=== PATIENT | female | born 1990 | race Caucasian/White ===

== ENCOUNTER 2016-10-09 12:35 | Emergency (ER) | payer SELFPAY ==
[2016-10-09 13:54] VITALS: BP 125/85
== END 2016-10-09 14:05 | disposition left against medical advice (07) ==
LOC: ED 12:35
DX: R11.10 Vomiting, unspecified (principal); R42 Dizziness and giddiness; R25.9 Unspecified abnormal involuntary movements
CPT/HCPCS: 99281

== ENCOUNTER 2017-04-16 11:47 | Emergency (ER) | payer SELFPAY ==
--- NOTE | 2017-04-16 14:32 | ED ---
Skin Complaint - HPI Summary HPI Summary: 26 female presents to ED with complaints of rash that has been ongoing since . Patient states she woke up with a red rash that was tender and associated with swelling of hands/forearms and foot. Admits to itching. Patient was seen by PCP on Monday and placed on claritin and aspirin. Did try benadryl prior to visit with PCP. Denies any new soaps, lotion, detergent, foods and medications. Works at a [employer] office however her daily practices have not changed, not using any new equipement, etc. Patient states the worst of her symptoms was yesterday when there were very red swollen areas that were tender. Rash has since improved and is only on right anterior forearm at this time. Admits to it being warm. Denies joint pain and aches. Denies know bug or tick bites. No fever/chills. No other complaints at this time. No PMHx. No other medications. Rash also noticed yesterday under chin, however has since resolved. No current numbness/tingling or drainage. No difficulty breathing or throat swelling. No trauma or swelling. Does take OCP. Rash is very random and bilateral, coming and going. Denies weakness. - History of Current Complaint Chief Complaint: EDRashSkinAbscess Time Seen by Provider: 04/16/17 12:16 Stated Complaint: SWELLING PAIN IN HANDS Hx Obtained From: Patient Onset/Duration: Started Days Ago, Still Present, Resolved - some Timing: Constant Onset Severity: Severe Current Severity: Moderate Pain Intensity: 7 Pain Scale Used: 0-10 Numeric Skin Location: Arm, Hand, Foot Character: Swelling, Pruritus, Redness, Raised, Painful Aggravating Symptom(s): Touch Alleviating Symptom(s): Nothing, Antihistamines Associated Signs & Symptoms: Rash, Joint Swelling - hands Related History: Other: - unknown - Allergy/Home Medications Allergies/Adverse Reactions: Allergies Allergy/AdvReac Type Severity Reaction Status Date / Time No Known Allergies Allergy Verified 04/16/17 12:02 PMH/Surg Hx/FS Hx/Imm Hx Endocrine/Hematology History: Denies: Hx Diabetes Cardiovascular History: Denies: Hx Hypertension Respiratory History: Denies: Hx Asthma - Surgical History Surgery Procedure, Year, and Place: n/a - Immunization History Date of Tetanus Vaccine: UTD Date of Influenza Vaccine: NO Immunizations Up to Date: Yes Infectious Disease History: No Infectious Disease History: Denies: Traveled Outside the [place] in Last 30 Days - Family History Known Family History: Positive: None - Social History Alcohol Use: Occasionally Substance Use Type: Reports: None Smoking Status (MU): Never Smoked Tobacco Review of Systems Constitutional: Negative Cardiovascular: Negative Respiratory: Negative Positive: Arthralgia, Myalgia Positive: Rash All Other Systems Reviewed And Are Negative: Yes Physical Exam Triage Information Reviewed: Yes Vital Signs On Initial Exam: Initial Vitals Temp Pulse Resp BP Pulse Ox 97.8 F 91 16 122/72 98 04/16/17 11:57 04/16/17 11:57 04/16/17 11:57 04/16/17 11:57 04/16/17 11:57 Vital Signs Reviewed: Yes Appearance: Positive: Well-Appearing, No Pain Distress, Well-Nourished Skin: Positive: Warm, Skin Color Reflects Adequate Perfusion, Dry, Erythema @ - noted to right anterior forearm diffuse, warm, mildy tender to touch, blanchable , no fluid or sign of bite/open wound. sensation intact. mild edema associated. old pictures of other locations with rash viewed and appeared similar. mild erythema noted blancable on bottom of right foot and palm of left hand. pruritic. similar to urticaria, bilateral without assosciated weakness.. Negative: Cold, Numb, Cyanosis @ Head/Face: Positive: Normal Head/Face Inspection Eyes: Positive: Conjunctiva Clear ENT: Positive: Hearing grossly normal Neck: Positive: Supple, Nontender, No Lymphadenopathy Respiratory/Lung Sounds: Positive: Clear to Auscultation, Breath Sounds Present. Negative: Decreased Breath Sounds, Rales, Rhonchi, Wheezes Cardiovascular: Positive: Normal, RRR, Pulses are Symmetrical in both Upper and Lower Extremities. Negative: Murmur, Rub Musculoskeletal: Positive: Normal, Strength/ROM Intact, Pain @ - with movement and tough of right hand/forearm but able and FROM, Edema Left, Edema Right - hands/forearm, described above. Negative: Limited @, Interruption @, Abnormal @ Neurological: Positive: Normal, Sensory/Motor Intact - sensation intact, Alert, Oriented to Person Place, Time, CN Intact II-III, Reflexes Intact, NV Bundle Intact Distally, Normal Gait - [place] Coma Scale Coma Scale Total: 15 Diagnostics - Vital Signs Vital Signs Temp Pulse Resp BP Pulse Ox 04/16/17 11:57 97.8 F 91 16 122/72 98 - Laboratory Result Diagrams: 04/16/17 14:51 04/16/17 14:51 Lab Statement: Any lab studies that have been ordered have been reviewed, and results considered in the medical decision making process. Course/Dx - Course Course Of Treatment: Dr Jaramillo also evaluated patient who agrees that this appears to be an allergic reaction/urticaric like rash. Basic labs obtained and unremarkable. Will give vistiril and medrol pack. Given dexamethasone and vistirl while in ED. Continue at home, starting tomorrow. No concern for other etiology at this time due to presentation and symptoms/complaints. Has improved since began. Presenting like urticaria. Follow up with PCP. Aware of worsening signs and symptoms to watch out for. Normal vitals and afebrile. Ibuprofen for pain/swelling. discontinue aspirin and claritin. benadryl at bedtime and topical creams suggested for itching if desired. - Differential Diagnoses - Skin Complaint Differential Diagnoses: MRSA, Urticaria, Viral Exanthem, Other - rash, erythema migrans - Diagnoses Provider Diagnoses: Urticaria, Rash - Physician Notifications Discussed Care Of Patient With: Dr Jaramillo also evaluated patient and agrees Discharge - Discharge Plan Condition: Stable Disposition: HOME Prescriptions: hydrOXYzine HCL TAB* [Atarax 25 MG TAB*] 25 mg PO TID #21 tab Methylprednisolone [Medrol Dosepak 4 MG*] 4 mg PO .SEE JESSENIA INSTRUCTION #21 tab Patient Education Materials: Urticaria (ED), Acute Rash (ED) Referrals: [facility] [Outside] Additional Instructions: Take prescribed medication starting tomorrow. Discontinue aspirin and claritin. Take benadryl at bedtime. Ibuprofen as needed for discomfort and inflammation. You may try hydrocortisone or benadryl cream to help with itching topically, sold OTC. Keep clean and dry. Follow up with PCP for recheck as already scheduled. Any new or worsening symptoms please seek medical attention promptly, as discussed.
[2017-04-16 15:02] LABS: Hematocrit 40 % (35-47); Hemoglobin 14.1 g/dl (12.0-16.0); Mean Corpuscular HGB Conc 35 g/dl (31-36); Mean Corpuscular Hemoglobin 32 pg (27-31); Mean Corpuscular Volume 90 fL (80-97); Mean Platelet Volume 8 um3 (7.4-10.4); Platelet Count 227 10^3/ul (150-450); Red Blood Count 4.47 10^6/ul (4.0-5.4); Red Cell Distribution Width 13 % (10.5-15); White Blood Count 9.7 10^3/ul (3.5-10.8)
[2017-04-16 15:17] LABS: EGFR Non-African American 105.4 (>60)
[2017-04-16] MEDS ORDERED: Dexamethasone IV* 4 MG/ML 1 ML (4 MG) IM ONE (15:18)
[2017-04-16] MEDS ORDERED: hydrOXYzine HCL TAB* 25 MG PO ONE (15:18)
[2017-04-16 15:58] VITALS: BP 121/74
== END 2017-04-16 15:57 | disposition home or self-care (01) ==
LOC: ED 11:47
DX: R21 Rash and other nonspecific skin eruption (principal); L50.9 Urticaria, unspecified
CPT/HCPCS: 36415; 80053; 85027; 85652; 86140; 86618; 96372; 99282; A9270-GY; J1100

== ENCOUNTER 2017-04-22 09:41 | Emergency (ER) | payer SELFPAY ==
[2017-04-22 09:51] VITALS: BP 147/74
--- NOTE | 2017-04-22 09:59 | UC ---
Skin Complaint HPI - HPI Summary HPI Summary: 26 year old female with upper lip swelling. She went to the ED last week and given medrol and atarax. Her symptoms had improved but now returned. She finished the meds recently. No SOB. No AVILA. No difficulty breathing or swallowing. She went to her PCP as well for this when it was her hands that were swollen and both times at the ED and the PCP the labs were normal she believes. She did recently increase her celexa from 10 mg to 20 mg . - History of Current Complaint Chief Complaint: UCAllergicReaction Time Seen by Provider: 04/22/17 09:53 Stated Complaint: SWOLLEN LIPS Hx Obtained From: Patient Hx Last Menstrual Period: 03/24 Onset/Duration: Gradual Onset Timing: Constant Onset Severity: Mild Current Severity: Moderate Aggravating Factor(s): Nothing - Allergy/Home Medications Allergies/Adverse Reactions: Allergies Allergy/AdvReac Type Severity Reaction Status Date / Time No Known Allergies Allergy Verified 04/22/17 09:43 Review of Systems ENT: Other - lip swelling upper lip Psychological: Anxious, Depressed All Other Systems Reviewed And Are Negative: Yes PMH/Surg Hx/FS Hx/Imm Hx Previously Healthy: Yes Psychological History: Anxiety, Depression - Surgical History Surgical History: None Surgery Procedure, Year, and Place: n/a - Family History Known Family History: Positive: None - Social History Occupation: Employed Full-time - MA at [employer] Alcohol Use: Occasionally Substance Use Type: None Smoking Status (MU): Never Smoked Tobacco Physical Exam Triage Information Reviewed: Yes Appearance: Well-Appearing, No Pain Distress, Well-Nourished Vital Signs: Initial Vital Signs Temp 97.9 F 04/22/17 09:49 Pulse 106 04/22/17 09:49 Resp 16 04/22/17 09:49 BP 147/74 04/22/17 09:49 Pulse Ox 100 04/22/17 09:49 Vital Signs Reviewed: Yes Eye Exam: Normal ENT Exam: Normal Dental Exam: Normal Neck exam: Normal Neck: Positive: 1 Respiratory Exam: Normal Cardiovascular Exam: Normal Musculoskeletal Exam: Normal Neurological Exam: Normal Psychological Exam: Normal Skin Exam: Normal Skin: Positive: Other - upper lip mild angioedema / swelling. lower lip not involved. airway open . no enlarged tonsils. breathing and talking comfortably Course/Dx - Course Course Of Treatment: Could be her SSRi as it was incresed recently and no other new meds. Could be food allergy as well. She will decresae SSRI to 10 mg at this time and f/u with PCP in 2-3 days to discuss further management. also to keep journal at home for food allergy . if sx worsen she is well aware to go to ED. If worsened swelling, any throat closing or difficulty swalloing or breathing then go to ED. She received depo in ED and thinks it helped and will get at this time as well . restart medrol at this time and refill atarax . - Diagnoses Provider Diagnoses: Angioedema upper lip Discharge - Discharge Plan Condition: Good Disposition: HOME Prescriptions: hydrOXYzine HCL TAB* [Atarax 25 MG TAB*] 25 mg PO TID #30 tab Methylprednisolone [Medrol Dosepak 4 MG*] 0 mg PO .SEE JESSENIA INSTRUCTION #1 tab Patient Education Materials: Angioedema (ED) Referrals: No Primary Care Phys,NOPCP [Primary Care Provider] - 2 Days Additional Instructions: WE DISCUSSED YOUR SYMPTOMS MAY BE FROM YOUR CELEXA. PLEASE CUT YOUR DOSE DOWN TO 10 MG DAILY AND FOLLOW UP WITH YOUR PRIMARY CARE PHYSICIAN IN 2-3 DAYS TO DISCUSS THE NEXT STEP . IF YOUR SYMPTOMS ARE WORSENING THEN GO TO THE EMERGENCY ROOM.
[2017-04-22] MEDS ORDERED: methylPREDNISolone 125 MG* 2 ML VIAL IM ONE (10:08)
== END 2017-04-22 10:30 | disposition home or self-care (01) ==
LOC: UCEAST 09:41
DX: T78.3XXA Angioneurotic edema, initial encounter (principal); X58.XXXA Exposure to other specified factors, initial encounter; Y92.9 Unspecified place or not applicable
CPT/HCPCS: 99211; G0463; J2930

== ENCOUNTER 2018-03-24 08:01 | Emergency (ER) | payer BC ==
[2018-03-24 08:13] VITALS: BP 117/85
--- NOTE | 2018-03-24 08:32 | UC ---
Eye Complaint HPI - HPI Summary HPI Summary: 27-year-old female presents with onset of right eye redness, itchiness, and drainage this morning. Associated with to 3 day history of some upper respiratory symptoms including nasal congestion, clear nasal drainage, right ear fullness, and occasional productive cough. She does state that she has had some occasional nausea for the last several days. She did miss her last period however was seen by her SPORT PSYCHOLOGIST yesterday had a negative test and ultrasound. She also states that she has had multiple weeks of intermittent watery diarrhea which she has been following with her primary care provider. Denies fever, chills, eye injury, FB sensation, photophobia, vision changes, headache, sinus pressure, sore throat, chest pain, shortness of breath, abdominal pain, or vomiting. - History of Current Complaint Chief Complaint: UCEye Stated Complaint: EYE COMPLAINT Time Seen by Provider: 03/24/18 08:03 Hx Obtained From: Patient Hx Last Menstrual Period: 02/16/18 Onset/Duration: Sudden Onset Pain Intensity: 0 Location of Injury: Conjunctiva Aggravating Factor(s): Nothing Alleviating Factor(s): Nothing Associated Signs And Symptoms: Positive: Drainage (Purulent). Negative: Photophobia, Vision Impairment Bilateral, Fever - Allergies/Home Medications Allergies/Adverse Reactions: Allergies Allergy/AdvReac Type Severity Reaction Status Date / Time ibuprofen Allergy Swelling Verified 03/24/18 08:09 Of Face,Lips,& Throat Home Medications: Home Medications Cetirizine* [ZyrTEC 10 MG TAB*] 10 mg PO DAILY 03/24/18 [History Confirmed 03/24] Ethinyl Estradiol/Drospirenone [Loryna] 1 tab PO DAILY 03/24/18 [History Confirmed 03/24/18] Venlafaxine EXT RELEASE CAP* [Effexor Xr CAP*] 75 mg PO DAILY 03/24/18 [History Confirmed 03/24/18] PMH/Surg Hx/FS Hx/Imm Hx Previously Healthy: Yes Psychological History: Anxiety, Depression - Surgical History Surgical History: Yes - Cholecystectomy Surgery Procedure, Year, and Place: n/a - Family History Known Family History: Positive: Non-Contributory - Social History Occupation: Employed Full-time Lives: Alone Alcohol Use: Occasionally Substance Use Type: None Smoking Status (MU): Never Smoked Tobacco Review of Systems All Other Systems Reviewed And Are Negative: Yes Constitutional: Negative: Fever, Chills Skin: Negative: Rash Eyes: Positive: Drainage, Eye Redness. Negative: Blurred Vision, Diplopia, Photophobia ENT: Positive: Nasal Discharge. Negative: Sore Throat, Sinus Congestion, Sinus Pain/Tenderness Respiratory: Positive: Cough. Negative: Shortness Of Breath Cardiovascular: Negative: Palpitations, Chest Pain Gastrointestinal: Positive: Diarrhea, Nausea. Negative: Abdominal Pain, Vomiting Genitourinary: Negative: Dysuria, Frequency, Urgency Is Patient Immunocompromised?: No Physical Exam - Summary Physical Exam Summary: GENERAL APPEARANCE: Well developed, well nourished, alert and cooperative, and appears to be in no acute distress. EYES: PERRL, EOM intact. Vision is grossly intact. Right eye with conjunctival erythema and purulent drainage. EARS: External auditory canals and tympanic membranes clear, hearing grossly intact. NOSE: Nasal discharge with clear nasal drainage. THROAT: Oral cavity and pharynx normal. No tonsilar inflammation, swelling, or exudate. Teeth and gingiva in good general condition. NECK: Neck supple, non-tender without lymphadenopathy. CARDIAC: Normal S1 and S2. No S3, S4 or murmurs. Rhythm is regular. There is no peripheral edema, cyanosis or pallor. Extremities are warm and well perfused. Capillary refill is less than 2 seconds. LUNGS: Clear to auscultation and percussion without rales, rhonchi, wheezing or diminished breath sounds. ABDOMEN: Positive bowel sounds. Soft, nondistended, nontender. No guarding or rebound. No masses or hepatosplenomegally. MUSKULOSKELETAL: ROM intact to all extremities. No joint erythema or tenderness. Normal muscular development. Normal gait. EXTREMITIES: No edema. Peripheral pulses intact. SKIN: Skin normal color, texture and turgor with no lesions or eruptions. Triage Information Reviewed: Yes Vital Signs: Initial Vital Signs Temp 98.6 F 03/24/18 08:11 Pulse 89 03/24/18 08:11 Resp 16 03/24/18 08:11 BP 117/85 03/24/18 08:11 Pulse Ox 99 03/24/18 08:11 Vital Signs Reviewed: Yes Eye Complaint Course/Dx - Course Course Of Treatment: 27-year-old female presents with onset of right eye redness , itchiness, and drainage this morning. Associated with to 3 day history of some upper respiratory symptoms including nasal congestion, clear nasal drainage , right ear fullness, and occasional productive cough. She does state that she has had some occasional nausea for the last several days. She did miss her last period however was seen by her SPORT PSYCHOLOGIST yesterday had a negative test and ultrasound. She also states that she has had multiple weeks of intermittent watery diarrhea which she has been following with her primary care provider. Denies fever, chills, eye injury, FB sensation, photophobia, vision changes, headache, sinus pressure, sore throat, chest pain, shortness of breath , abdominal pain, or vomiting. Afebrile. VSS. Exam revealed some right eye erythema with discharge as well as mild nasal congestion and clear drainage. Suspect that symptoms may be viral however with the purulent eye discharge will treat with course of Polytrim ophthalmic as well as symptomatic treatment of URI symptoms. She has follow up scheduled with her PCP in 1 week already scheduled to follow up on her intermittent diarrhea and will address this with them at that time. Warning symptoms were reviewed with patient. Verbalizes understanding and agrees with POC. - Differential Dx/Diagnosis Differential Diagnosis/HQI/PQRI: Conjunctivitis, Corneal Abrasion, Foreign Body , Periorbital Cellulitis Provider Diagnosis: Conjunctivitis, Upper respiratory infection with cough and congestion Discharge - Sign-Out/Discharge Documenting (check all that apply): Patient Departure All imaging exams completed and their final reports reviewed: No Studies - Discharge Plan Condition: Stable Disposition: HOME Prescriptions: Fluticasone NASAL SPRAY 50MCG* [Flonase NASAL SPRAY 50MCG*] 2 spray BOTH NARES DAILY #1 btl Polymyx/Trimethoprim OPTH* [Polytrim OPHTH*] 1 drop RIGHT EYE Q3H #1 btl MDD 6 doses Patient Education Materials: Upper Respiratory Infection (ED), Conjunctivitis ( ED) Forms: *Work Release Referrals: Demario Walden DO [Primary Care Provider] - (Keep your appointment next week as scheduled) Additional Instructions: Your history and exam are consistent with an upper respiratory infection. Upper respiratory infections tend to be from a virus which do not respond to antibiotics and are limited to the treatment of symptoms. Viral infections typically run their course in 7-10 days. Because of the drainage you are having from the eye, we will treat for a possible bacterial conjunctivitis with an antibiotic eye drop. Start Polytrim opthalmic 1 drop in the affected eye every 3 hours while awake for 7 days. Be sure to complete the full 7 days even if feeling better. To prevent transmitting the infection, try not to rub your eye, do not share washcloths or towels with others, only use a wash cloth or towel once and launder, wash your hands frequently. For the upper respiratory infection" Drink plenty of fluids to avoid dehydration especially if you are running any fever. Use a saline rinse kit such as Neti Pot or NeilMed at least twice a day to help thin secretions and promote drainage of the sinuses. Use fluticasone (Flonase) nasal spray 2 sprays each nostril once daily. Take over the counter acetaminophen (Tylenol) according to directions as needed for pain or fever. Follow up with your primary care provider as scheduled next week to follow up your symptoms and to reassess the nausea and diarrhea. Seek immediate medical attention in the emergency room if you have fever greater than 100.5 F despite taking acetaminophen, have chest pain, difficulty breathing, have vision changes or loss, or have any worsening of symptoms. - Billing Disposition and Condition Condition: STABLE Disposition: Home
== END 2018-03-24 08:39 | disposition home or self-care (01) ==
LOC: UCCORT 08:01
DX: H10.9 Unspecified conjunctivitis (principal); J06.9 Acute upper respiratory infection, unspecified; R05 Cough; R09.81 Nasal congestion; Z88.3 Allergy status to other anti-infective agents
CPT/HCPCS: 99212; G0463

== ENCOUNTER 2018-05-30 10:26 | Emergency (ER) | payer SELFPAY ==
--- NOTE | 2018-05-30 11:24 | UC ---
Throat Pain/Nasal Jhon HPI - HPI Summary HPI Summary: 27-year-old female comes in with 3 days complaint of upper respiratory tract infection symptoms. Set of runny nose mild sore throat and chills. Symptoms started getting worse in the last 24 hours with a lot of upper body aches. She is concerned if she might have the flu. [id number] medications to help with symptoms. - History of Current Complaint Stated Complaint: COUGH, CONGESTION, HEADACHE, SORE THROAT Time Seen by Provider: 05/30/18 11:03 Hx Last Menstrual Period: 02/16/18 - Allergies/Home Medications Allergies/Adverse Reactions: Allergies Allergy/AdvReac Type Severity Reaction Status Date / Time ibuprofen Allergy Swelling Verified 05/30/18 11:44 Of Face,Lips,& Throat PMH/Surg Hx/FS Hx/Imm Hx Previously Healthy: Yes - Surgical History Surgical History: Yes - Cholecystectomy Surgery Procedure, Year, and Place: n/a - Family History Known Family History: Positive: None, Non-Contributory - Social History Alcohol Use: Occasionally Substance Use Type: None Smoking Status (MU): Never Smoked Tobacco Review of Systems All Other Systems Reviewed And Are Negative: Yes Constitutional: Positive: Chills Skin: Positive: Negative Eyes: Positive: Negative ENT: Positive: Sore Throat, Nasal Discharge, Sinus Congestion Respiratory: Positive: Negative Cardiovascular: Positive: Negative Gastrointestinal: Positive: Negative Motor: Positive: Negative Neurovascular: Positive: Negative Musculoskeletal: Positive: Myalgia Neurological: Positive: Negative Psychological: Positive: Negative Is Patient Immunocompromised?: No Physical Exam Triage Information Reviewed: Yes Appearance: No Pain Distress, Well-Nourished, Ill-Appearing - mild Vital Signs Reviewed: Yes Eye Exam: Normal Eyes: Positive: Conjunctiva Clear ENT: Positive: Pharyngeal erythema, Nasal congestion, Nasal drainage, TMs normal Neck exam: Normal Neck: Positive: Supple Respiratory: Positive: Lungs clear, Normal breath sounds, No respiratory distress Cardiovascular: Positive: RRR Musculoskeletal Exam: Normal Musculoskeletal: Positive: Strength Intact, ROM Intact Neurological Exam: Normal Neurological: Positive: Alert Psychological Exam: Normal Psychological: Positive: Age Appropriate Behavior Skin Exam: Normal Throat Pain/Nasal Course/Dx - Course Course Of Treatment: DISCUSSED VIRAL VERSES BACTERIAL INFECTION AND THE ROLE OF ANTIBIOTICS. THE PATIENT WISHES TO BE ON ANTIBIOTIC AT THIS TIME. - Differential Dx/Diagnosis Provider Diagnosis: Upper respiratory infection Discharge - Sign-Out/Discharge Documenting (check all that apply): Patient Departure All imaging exams completed and their final reports reviewed: No Studies - Discharge Plan Condition: Stable Disposition: HOME Prescriptions: Amoxicillin PO (*) [Amoxicillin 875 MG (*)] 875 mg PO BID #20 tab Patient Education Materials: Upper Respiratory Infection (ED) Forms: *Work Release Referrals: Demario Walden DO [Primary Care Provider] - Additional Instructions: FOLLOW UP WITH YOUR DOCTOR IF NOT COMPLETELY IMPROVED. GET RECHECKED FOR ANY WORSENING OF YOUR CONDITION OR QUESTIONS OR CONCERNS. - Billing Disposition and Condition Condition: STABLE Disposition: Home
[2018-05-30 11:40] LABS: Influenza A Molecular NEGATIVE (Negative); Influenza B Molecular NEGATIVE (Negative)
[2018-05-30 11:48] VITALS: BP 120/73
== END 2018-05-30 12:09 | disposition home or self-care (01) ==
LOC: UCCORT 10:26
DX: J06.9 Acute upper respiratory infection, unspecified (principal); Z88.8 Allergy status to other drugs, medicaments and biological substances
CPT/HCPCS: 99212; G0463

== ENCOUNTER 2018-08-05 10:04 | Emergency (ER) | payer BC ==
[2018-08-05 10:30] VITALS: BP 116/76
--- NOTE | 2018-08-05 11:13 | UC ---
Throat Pain/Nasal Jhon HPI - HPI Summary HPI Summary: Sore throat and mild cough for about 4 days. No fever. She had a migraine a few nights ago. this is better. Sore throat has also improved compared to yesterday. She also has right index finger itching and mild pinkness that was something that occured with Nsaids in the past. No rash on the chest or lip swelling. - History of Current Complaint Chief Complaint: UCGeneralIllness Stated Complaint: SORE THROAT Time Seen by Provider: 08/05/18 10:56 Hx Obtained From: Patient Hx Last Menstrual Period: 07/16/18 ?: No Onset/Duration: Gradual Onset, Still Present Severity: Moderate Pain Intensity: 6 Cough: Nonproductive Associated Signs & Symptoms: Positive: Dysphagia. Negative: Fever, Vomiting, Rash - Allergies/Home Medications Allergies/Adverse Reactions: Allergies Allergy/AdvReac Type Severity Reaction Status Date / Time ibuprofen Allergy Swelling Verified 08/05/18 10:31 Of Face,Lips,& Throat PMH/Surg Hx/FS Hx/Imm Hx Previously Healthy: Yes - Surgical History Surgical History: Yes Surgery Procedure, Year, and Place: gallbladder 09/2016 - Family History Known Family History: Positive: None, Non-Contributory - Social History Occupation: Employed Full-time Alcohol Use: Occasionally Substance Use Type: None Smoking Status (MU): Never Smoked Tobacco Review of Systems All Other Systems Reviewed And Are Negative: Yes ENT: Positive: Sore Throat Respiratory: Positive: Cough Physical Exam Triage Information Reviewed: Yes Appearance: Well-Appearing, No Pain Distress, Well-Nourished Vital Signs: Initial Vital Signs Temp 97.1 F 08/05/18 10:25 Pulse 100 08/05/18 10:25 Resp 16 08/05/18 10:25 BP 116/76 08/05/18 10:25 Pulse Ox 96 08/05/18 10:25 Vital Signs Reviewed: Yes Eyes: Positive: Conjunctiva Clear ENT: Positive: Normal ENT inspection, Pharynx normal, TMs normal, Sinus tenderness. Negative: Pharyngeal erythema, Nasal congestion, Nasal drainage, TM bulging, TM dull, TM red, Tonsillar swelling, Tonsillar exudate, Trismus, Muffled voice Neck: Positive: Supple, Nontender, No Lymphadenopathy Respiratory: Positive: Chest non-tender, Lungs clear. Negative: Normal breath sounds, No respiratory distress, No accessory muscle use, Respiratory distress, Decreased breath sounds, Accessory muscle use, Crackles, Rhonchi, Stridor Cardiovascular: Positive: No Murmur, Pulses Normal Abdomen Description: Positive: No Organomegaly, Soft. Negative: Distended, Guarding Musculoskeletal: Positive: Strength Intact, ROM Intact. Negative: No Edema Neurological: Positive: Alert, Muscle Tone Normal. Negative: Fatigued Psychological: Positive: Age Appropriate Behavior. Negative: Abnormal Response To Family Skin: Positive: Rashes Throat Pain/Nasal Course/Dx - Course Course Of Treatment: Sore throat mild cough. No fever. NO purulence or tonsillar swelling. She does not meet criteria for strep treatment or testing. LIkely viral. No signficant symptoms or signs of allergy to the two doses of amoxacillin that she took. - Differential Dx/Diagnosis Provider Diagnosis: Pharyngitis Discharge - Sign-Out/Discharge Documenting (check all that apply): Patient Departure All imaging exams completed and their final reports reviewed: No Studies - Discharge Plan Condition: Good Disposition: HOME Patient Education Materials: Pharyngitis (ED) Referrals: Demario Walden DO [Primary Care Provider] - - Billing Disposition and Condition Condition: GOOD Disposition: Home
== END 2018-08-05 11:16 | disposition home or self-care (01) ==
LOC: UCCORT 10:04
DX: J02.9 Acute pharyngitis, unspecified (principal); Z88.8 Allergy status to other drugs, medicaments and biological substances
CPT/HCPCS: 99211; G0463

== ENCOUNTER 2018-08-11 18:59 | Emergency (ER) | payer BC ==
[2018-08-11 19:39] VITALS: BP 140/92
--- NOTE | 2018-08-11 19:50 | UC ---
Throat Pain/Nasal Jhon HPI - HPI Summary HPI Summary: Sore throat 10 days, pt was seen here 08/05/18 no testing was done. Neck pain started on 08/04/18, improved then got worse again 08/07/18. - History of Current Complaint Chief Complaint: UCRespiratory Stated Complaint: SORE THROAT Time Seen by Provider: 08/11/18 19:38 Hx Obtained From: Patient Hx Last Menstrual Period: today ?: No Onset/Duration: Sudden Onset, Lasting Days Severity: Severe Pain Intensity: 7 Associated Signs & Symptoms: Positive: Dysphagia - Allergies/Home Medications Allergies/Adverse Reactions: Allergies Allergy/AdvReac Type Severity Reaction Status Date / Time ibuprofen Allergy Swelling Verified 08/05/18 10:31 Of Face,Lips,& Throat NSAIDS Allergy Swelling Uncoded 08/11/18 19:40 Of Face,Lips,& Throat PMH/Surg Hx/FS Hx/Imm Hx Previously Healthy: Yes - Surgical History Surgical History: Yes Surgery Procedure, Year, and Place: gallbladder 09/2016 - Family History Known Family History: Positive: Cardiac Disease - Social History Alcohol Use: Occasionally Substance Use Type: None Smoking Status (MU): Never Smoked Tobacco Review of Systems All Other Systems Reviewed And Are Negative: Yes ENT: Positive: Sore Throat Is Patient Immunocompromised?: No Physical Exam Appearance: Well-Appearing, Well-Nourished, Pain Distress Vital Signs: Initial Vital Signs Temp 97.6 F 08/11/18 19:33 Pulse 87 08/11/18 19:33 Resp 16 08/11/18 19:33 BP 140/92 08/11/18 19:33 Pulse Ox 100 08/11/18 19:33 Vital Signs Reviewed: Yes Eye Exam: Normal ENT: Positive: Pharyngeal erythema, TMs normal Neck: Positive: Supple, No Lymphadenopathy, Tenderness @ - left cervical Respiratory Exam: Normal Cardiovascular Exam: Normal Abdominal Exam: Normal Musculoskeletal Exam: Normal Neurological Exam: Normal Psychological Exam: Normal Skin Exam: Normal Throat Pain/Nasal Course/Dx - Course Course Of Treatment: hx obtained, exam performed ,meds reviewed, rapid strep obtained and is positive - Differential Dx/Diagnosis Differential Diagnosis/HQI/PQRI: Pharyngitis, Sinusitis, Tonsillitis, URI Provider Diagnosis: Strep pharyngitis Discharge - Sign-Out/Discharge Documenting (check all that apply): Patient Departure All imaging exams completed and their final reports reviewed: No Studies - Discharge Plan Condition: Stable Disposition: HOME Prescriptions: Amoxicillin PO (*) [Amoxicillin 500 MG CAP*] 500 mg PO Q12H #20 cap Patient Education Materials: Strep Throat (DC) Referrals: Demario Walden DO [Primary Care Provider] - Additional Instructions: 1. take the medication as prescribed. 2. FOllow up as needed. - Billing Disposition and Condition Condition: STABLE Disposition: Home
[2018-08-11] MEDS ORDERED: Amoxicillin PO (*) 500 MG CAP PO ONE (19:53)
== END 2018-08-11 20:01 | disposition home or self-care (01) ==
LOC: UCCORT 18:59
DX: J02.0 Streptococcal pharyngitis (principal); Z88.8 Allergy status to other drugs, medicaments and biological substances
CPT/HCPCS: 87651; 99212; A9270-GY; G0463

== ENCOUNTER 2018-10-09 07:21 | Emergency (ER) | payer BC ==
[2018-10-09] MEDS ORDERED: Ondansetron ODT TAB* 4 MG PO ONE (07:51)
[2018-10-09] MEDS ORDERED: HYDROcodone/ACETAMIN 5-325 MG* 1 TAB PO ONE (07:51)
--- NOTE | 2018-10-09 07:57 | UC ---
Headache HPI - HPI Summary HPI Summary: severe headaches x 1 day started last night, pain is frontal head, no radiation 9 out of 10 , nothing makes it better, tried Tylenol without any improvements worse with light and activities + photophobia, nausea - History Of Current Complaint Chief Complaint: UCHeadache Stated Complaint: MIGRAINE Time Seen by Provider: 10/09/18 07:43 Hx Obtained From: Patient Hx Last Menstrual Period: 10/08/2018 ?: No Onset/Duration: Gradual Onset, Lasting Days - 1, Still Present Onset Of Symptoms: Sudden Initially Headache Was: Severe Currently Pain Is: Severe Pain Intensity: 9 Timing: Constant Character: Throbbing Location of Headache: Frontal Aggravating Factor(s): Exertion, Bright Lights Allevating Factor(s): Nothing Associated Signs And Symptoms: Positive: Nausea. Negative: Dizziness, Seizure, Vomiting, Sinus Pressure, Fever, Neck Pain, Neck Stiffness, Decreased LOC, Visual Changes - Allergies/Home Medications Allergies/Adverse Reactions: Allergies Allergy/AdvReac Type Severity Reaction Status Date / Time ibuprofen Allergy Swelling Verified 10/09/18 07:33 Of Face,Lips,& Throat NSAIDS Allergy Swelling Uncoded 10/09/18 07:33 Of Face,Lips,& Throat Home Medications: Home Medications Acetaminophen [Tylenol Extra Strength] 1,000 mg PO ONCE PRN 10/09/18 [History Confirmed 10/09/18] PMH/Surg Hx/FS Hx/Imm Hx Neurological History: Migraine Psychological History: Anxiety, Depression - Surgical History Surgical History: Yes Surgery Procedure, Year, and Place: gallbladder 09/2016 - Family History Known Family History: Positive: Cardiac Disease - Social History Alcohol Use: Occasionally Substance Use Type: None Smoking Status (MU): Current Some Day Smoker Type: Cigarettes Review of Systems All Other Systems Reviewed And Are Negative: Yes Constitutional: Positive: Negative Skin: Positive: Negative Eyes: Positive: Photophobia ENT: Positive: Negative Gastrointestinal: Positive: Nausea Neurological: Positive: Headache Is Patient Immunocompromised?: No Physical Exam Triage Information Reviewed: Yes Appearance: Well-Nourished, Pain Distress Vital Signs: Initial Vital Signs Temp 98.1 F 10/09/18 07:34 Pulse 72 10/09/18 07:34 Resp 17 10/09/18 07:34 BP 144/92 10/09/18 07:34 Pulse Ox 100 10/09/18 07:34 Vital Signs Reviewed: Yes Eye Exam: Normal Eyes: Positive: Conjunctiva Clear ENT: Positive: Normal ENT inspection, Hearing grossly normal, Pharynx normal Neck exam: Normal Neck: Positive: Supple, Nontender, No Lymphadenopathy Respiratory: Positive: Chest non-tender, Lungs clear, Normal breath sounds Cardiovascular: Positive: RRR, No Murmur, Pulses Normal Musculoskeletal: Positive: Strength Intact, ROM Intact, No Edema Neurological: Positive: Alert, Muscle Tone Normal Skin Exam: Normal UC Physical Exam Vital Signs On Initial Exam: Initial Vitals Temp Pulse Resp BP Pulse Ox 98.1 F 72 17 144/92 100 10/09/18 07:34 10/09/18 07:34 10/09/18 07:34 10/09/18 07:34 10/09/18 07:34 - Neurological Exam Neurological: Normal, Sensory/Motor Intact, CN Intact II-III, Abnormal Gait, Speech Normal Headache Course/Dx - Differential Dx/Diagnosis Provider Diagnosis: Headache Discharge - Sign-Out/Discharge Documenting (check all that apply): Patient Departure All imaging exams completed and their final reports reviewed: No Studies - Discharge Plan Condition: Stable Disposition: HOME Patient Education Materials: Acute Headache (ED) Referrals: Demario Walden DO [Primary Care Provider] - 5 Days - Billing Disposition and Condition Condition: STABLE Disposition: Home
[2018-10-09 11:30] VITALS: BP 113/70
== END 2018-10-09 11:56 | disposition home or self-care (01) ==
LOC: UCCORT 07:21
DX: R21 Rash and other nonspecific skin eruption (principal); F17.210 Nicotine dependence, cigarettes, uncomplicated
CPT/HCPCS: 99212; A9270-GY; G0463

== ENCOUNTER 2018-10-30 07:43 | Emergency (ER) | payer BC ==
[2018-10-30 07:59] VITALS: BP 137/83
--- NOTE | 2018-10-30 08:16 | UC ---
Eye Complaint HPI - HPI Summary HPI Summary: left eye redness x 1 day , crusty , yellow discharge, no eye pain , no change if vision, puffiness around her eye and very itchy nothing makes better or worse no fever , no chills, no cold symptoms skin rash mid abdomen x 3 days, + itchy, no change in soap / detergent - History of Current Complaint Chief Complaint: UCEye Stated Complaint: LEFT EYE COMPLAINT Time Seen by Provider: 10/30/18 07:52 Hx Obtained From: Patient Hx Last Menstrual Period: 10/10/18 ?: No Onset/Duration: Gradual Onset, Lasting Days - 1, Still Present Timing: Constant Severity Initially: Mild Severity Currently: Mild Pain Intensity: 0 Location of Injury: Conjunctiva - left Aggravating Factor(s): Nothing Alleviating Factor(s): Nothing Associated Signs And Symptoms: Positive: Drainage (Clear), Swelling. Negative: Photophobia, Drainage (Purulent), Vision Impairment Bilateral, Vision Impairment Right, Vision Impairment Left, Fever - Allergies/Home Medications Allergies/Adverse Reactions: Allergies Allergy/AdvReac Type Severity Reaction Status Date / Time ibuprofen Allergy Swelling Verified 10/09/18 07:33 Of Face,Lips,& Throat NSAIDS Allergy Swelling Uncoded 10/09/18 07:33 Of Face,Lips,& Throat PMH/Surg Hx/FS Hx/Imm Hx Previously Healthy: Yes - Surgical History Surgical History: Yes Surgery Procedure, Year, and Place: gallbladder 09/2016 - Family History Known Family History: Positive: Cardiac Disease - Social History Alcohol Use: Occasionally Substance Use Type: None Smoking Status (MU): Current Some Day Smoker Type: Cigarettes Review of Systems All Other Systems Reviewed And Are Negative: Yes Constitutional: Positive: Negative Skin: Positive: Negative Eyes: Positive: Drainage, Eye Redness ENT: Positive: Negative Respiratory: Positive: Negative Is Patient Immunocompromised?: No Physical Exam Triage Information Reviewed: Yes Appearance: Well-Appearing, No Pain Distress, Well-Nourished Vital Signs: Initial Vital Signs Temp 97.6 F 10/30/18 07:52 Pulse 94 10/30/18 07:52 Resp 16 10/30/18 07:52 BP 137/83 10/30/18 07:52 Pulse Ox 100 10/30/18 07:52 Vital Signs Reviewed: Yes Eye Exam: Normal Eyes: Positive: Conjunctiva Inflamed - left eye, Discharge - clear dischage left eye ENT: Positive: Normal ENT inspection, Hearing grossly normal, Pharynx normal, TMs normal. Negative: TM bulging, TM dull, TM red Neck: Positive: Supple, Nontender, No Lymphadenopathy Respiratory: Positive: Chest non-tender, Lungs clear, Normal breath sounds Cardiovascular: Positive: RRR, No Murmur, Pulses Normal Abdominal Exam: Normal Skin: Positive: Rashes - macular rash mid lower abd Eye Complaint Course/Dx - Differential Dx/Diagnosis Provider Diagnosis: Conjunctivitis, Dermatitis Discharge - Sign-Out/Discharge Documenting (check all that apply): Patient Departure All imaging exams completed and their final reports reviewed: No Studies - Discharge Plan Condition: Stable Disposition: HOME Prescriptions: Cromolyn Sodium 1 drop OP Q6H #1 bottle Triamcinolone 0.1% CREAM (NF) [Kenalog 0.1% Cream (NF)] 1 applic TOPICAL BID # 60 gm Patient Education Materials: Eczema (ED), Conjunctivitis (ED) Forms: *Work Release Referrals: Demario Walden DO [Primary Care Provider] - If Needed - Billing Disposition and Condition Condition: STABLE Disposition: Home
== END 2018-10-30 08:16 | disposition home or self-care (01) ==
LOC: UCCORT 07:43
DX: H10.9 Unspecified conjunctivitis (principal); L30.9 Dermatitis, unspecified; F17.210 Nicotine dependence, cigarettes, uncomplicated
CPT/HCPCS: 99212; G0463